=== PATIENT | female | born 1985 | race Caucasian/White ===

== ENCOUNTER 2018-10-11 20:01 | Inpatient (IN) | payer OTHER ==
[~2018-10-11] VITALS: Ht 167.6 cm; Wt 86.1 kg
--- NOTE | ~2018-10-11 | HC ---
[facility] [place] [address] CONSULTATION Name: JANETH ARREAGA Room #: 453-P ADM IN M.R.#: [id number] Admission: 10/11/18 Attend Phys: Stuart Betts MD Discharge: Date of : 87 Report #: [id number] THIS REPORT FOR: //name// CC: Ruben Rangel DO STUART Betts DATE OF SERVICE: 10/12/2018 She is a patient of Dr. Stuart Betts. She is also patient of Dr. Otis Rangel. CHIEF COMPLAINT: This is a very pleasant 33-year-old white female whom I am asked to evaluate for possible etiologies of upper abdominal pain that radiates around into her back associated with nausea and profuse vomiting of several days' duration. The patient had 2 previous episodes of similar type pain within the last month and she has also noted darkening of her urine, but no lightning of the stools. She does take protein powder supplements and other supplements that are probably not FDA approved. She does not know the names of these supplements. PAST MEDICAL HISTORY: Significant for irritable bowel syndrome. PAST SURGICAL HISTORY: None. ALLERGIES: No known drug allergies. MEDICATIONS: At the present time include only ibuprofen and the supplements as mentioned above that remain unnamed. SOCIAL HISTORY: She does not smoke cigarettes. She does not drink alcohol. She does smoke marijuana about 1 joint per day. FAMILY HISTORY: Significant for cholecystectomy in her mother. There is no history of colon polyps, colon cancer, Crohn's disease or ulcerative colitis in the family. REVIEW OF SYSTEMS: She denies any dysphagia, odynophagia, gastroesophageal reflux. She admits to hiatal hernia, but no peptic ulcer disease. Her weight has gone down intentionally by 50 pounds and she said she delivered her child 18 months ago. Her appetite has been decreased recently. She has had nausea and profuse vomiting over the last several days. She denies any hematemesis, hematochezia or melena. She does have the darkening of the urine. She has been constipated. She denies any light stools. She denies any jaundice, hepatitis or pancreatitis. She complains of pain across the upper abdomen radiating into her back that is burning in quality. [address] [address] CONSULTATION Name: JANETH ARREAGA Room #: 453-P [facility] IN M.R.#: [id number] Admission: 10/11/18 Attend Phys: Stuart Betts MD Discharge: Date of : 87 Report #: [id number] PHYSICAL EXAMINATION: GENERAL: Reveals a well-developed, well-nourished 33-year-old white female in no apparent distress at the time of my examination. She is awake, alert, oriented x 4 and cooperative and pleasant to converse with. HEENT: She appears normocephalic, atraumatic and anicteric. HEART: Rate and rhythm are regular with a normal S1 and S2. LUNGS: Clear bilaterally. ABDOMEN: Soft. Bowel sounds present in all 4 quadrants. There is no palpable organomegaly or mass. There is some mild tenderness throughout the entire abdomen, but no rebound or guarding. EXTREMITIES: Warm and dry. NEUROLOGIC: She appears grossly intact without lateralizing signs Symptoms are suggestive of gallbladder disease, although clinically she does not have a Tyson sign. She does have gallstones and she does have stones in the cystic duct, but not in the common bile duct. She has darkening of the urine. She has an elevated bilirubin of over 3 and elevated liver enzymes. AST was 683, it is down to 309 today. ALT was 1279, down to 892 today. Alkaline phosphatase was 238, down to 209. Total bilirubin was 3.5, down to 1.4 today. She had an ultrasound done that did not show any ductal dilatation, but MRCP that was done today to look for possible choledocholithiasis with a more sensitive test revealed the common bile duct to be dilated to 1 cm in this 33-year-old female. I also thought that I saw a filling defect in the distal common bile duct on one shot, but I am unsure of this finding. The MRCP was interpreted as being without choledocholithiasis. It should also be noted the patient gave to a son approximately 18 months ago and she has been having intermittent abdominal and back pain since that time. IMPRESSION: 1. As mentioned possible gallbladder disease. 2. History of irritable bowel syndrome. 3. Nausea and vomiting with dark-colored urine. 4. Constipation. RECOMMENDATIONS: To proceed with surgical consultation that has been obtained by Dr. Otis Rangel. Plans are for him to take the patient to the Operating Room for cholecystectomy later today and he will do an intraoperative cholangiogram, which will settle the issue of the common bile duct finding. At this point, I have no further plans. However, the fact that the patient did have some burning epigastric pain and has been taking some ibuprofen, she might benefit from proton pump inhibitors and even a possible EGD. [facility] [address] [place] [address] CONSULTATION Name: JANETH ARREAGA Room #: 453-P ADM IN M.R.#: [id number] Admission: 10/11/18 Attend Phys: Stuart Betts MD Discharge: Date of : 87 Report #: [id number] Thank you very much once again for allowing me to participate in her care. <ELECTRONICALLY SIGNED> By: Aleah Alvarez DO 10/12/18 [id number] Aleah Alvarez DO /nt
--- NOTE | ~2018-10-11 | PATH ---
[facility] [address] [place] [address] PATHOLOGY RPT PROCEDURE Name: LOUISE HUDDLESTON Room #: 453-P DIS IN M.R.#: [id number] Admission: 10/11/18 Date of : 87 Discharge: 10/13/18 Report #: [id number] Path Case #: [id number] [facility] Accession Number: [id number] . 01 Material submitted: . GALLBLADDER . 01 Clinical history: . Symptomatically cholecystitis . 02 Diagnosis: Gallbladder, cholecystectomy: - Moderate acute and chronic cholecystitis. - Cholelithiasis. - Incidental reactive lymph node. (IUV:pit 10/17/2018) QTP/10/17/2018 . 02 Electronically signed: . Erica Novak MD, Pathologist NPI- [id number] . 01 Gross description: . The specimen is received in formalin, labeled "Louise Huddleston gallbladder". The received is a previously opened gallbladder measuring 7.9 x 2.8 x 2.0 cm in greatest dimensions displaying bile-stained serosal surfaces. Further opening of the gallbladder reveals a velvety, bile-stained mucosa with a gallbladder wall thickness of 0.1 cm. Calculi are present displaying a bright yellow and nodular appearance, and no masses or lesions are noted grossly. Towards the cystic neck, there is a possible lymph nodes present measuring 0.6 cm in maximum dimensions. General Maintenance Technician sections, to include the proximal margin, are submitted in cassette A1. (CAA; 10/14/2018) QAC/QAC . 02 Pathologist provided ICD-10: K80.12 . 02 CPT . 322903 Specimen Comment: A courtesy copy of this report has been sent to Specimen Comment: [phone], . Specimen Comment: Report sent to / DR EMERY Performed at: [facility], [place], [place] [id number] [place] [address] PATHOLOGY RPT PROCEDURE Name: HUDDLESTONLOUISE MEDINA Room #: 453-P DIS IN M.R.#: [id number] Admission: 10/11/18 Date of : 87 Discharge: 10/13/18 Report #: [id number] Path Case #: [id number] MD Claudy Gastelum MD Phone: [phone] Performed at: [address] [id number] MD Erica Novak MD Phone: [phone]
[2018-10-11 20:13] VITALS: BP 133/113
[2018-10-11] MEDS ORDERED: IBUPROFEN 200200 M1 PO (20:18)
[2018-10-11 20:30] LABS: URINE BILIRUBIN 1+ (Negative); URINE BLOOD NEGATIVE (Negative); URINE CLARITY CLEAR; URINE COLOR YELLOW; URINE GLUCOSE-RANDOM* NEGATIVE (Negative); URINE KETONES NEGATIVE (Negative); URINE NITRITE-REFLEX NEGATIVE (Negative); URINE PROTEIN (DIPSTICK) NEGATIVE (Negative); URINE SPECIFIC GRAVITY <= 1.005 (1.005-1.035)
[2018-10-11 20:33] LABS: ABSOLUTE NEUTROPHILS 4.4 thou/uL (1.4-8.2); BASOPHILS 0.7 % (0.0-2.0); EOSINOPHILS 1.2 % (0.0-3.0); HEMATOCRIT 42.3 % (37.0-47.0); HEMOGLOBIN 14.7 gm/dL (12.0-15.0); LYMPHOCYTES 30.3 % (24.0-44.0); MCH 29.6 pg (26.0-34.0); MCHC 34.8 g/dL (28.0-37.0); MONOCYTES 8.1 % (1.0-8.0); PLATELET COUNT 241 thou/uL (150-400); POLYS 59.7 % (36.0-66.0); RBC 4.97 mil/uL (4.20-5.00); RDW 12.5 % (10.5-14.5); WBC 7.4 thou/uL (4.0-11.0)
[2018-10-11 20:36] LABS: ICTOTEST (BILI CONFIRMATORY) Positive (Negative); URINE LEUKOCYTES-REFLEX TRACE (Negative)
[2018-10-11 20:41] LABS: CALCIUM 9.3 mg/dL (8.5-10.1); CREATININE 0.9 mg/dL (0.6-1.0); POTASSIUM 3.6 mmol/L (3.5-5.1)
[2018-10-11 20:52] LABS: ALBUMIN 3.9 g/dL (3.4-5.0); TOTAL BILIRUBIN 3.5 mg/dL (<0.1-1.0); TOTAL PROTEIN 7.2 g/dL (6.4-8.2)
[2018-10-11 23:48] VITALS: BP 114/65
[2018-10-11 23:57] VITALS: BP 110/54
[2018-10-12] VITALS (7 sets, daily range): BP systolic 105–139; BP diastolic 61–94
[2018-10-12] MEDS ORDERED: UNICOMPLEX M TA1 TA1 PO (00:50)
[2018-10-12 08:36] LABS: HEMATOCRIT 38.8 % (37.0-47.0); HEMOGLOBIN 13.2 gm/dL (12.0-15.0); MCH 29.2 pg (26.0-34.0); MCHC 34.1 g/dL (28.0-37.0); MCV 85.8 fL (80.0-100.0); RBC 4.52 mil/uL (4.20-5.00); RDW 13.1 % (10.5-14.5); WBC 5.7 thou/uL (4.0-11.0)
[2018-10-12 08:48] LABS: ALBUMIN 3.2 g/dL (3.4-5.0); CALCIUM 8.4 mg/dL (8.5-10.1); CREATININE 0.8 mg/dL (0.6-1.0); POTASSIUM 4.1 mmol/L (3.5-5.1); TOTAL BILIRUBIN 1.4 mg/dL (<0.1-1.0); TOTAL PROTEIN 5.8 g/dL (6.4-8.2)
[2018-10-13 00:08] VITALS: BP 138/81
[2018-10-13 03:47] LABS: HEMATOCRIT 41.5 % (37.0-47.0); HEMOGLOBIN 13.9 gm/dL (12.0-15.0); MCHC 33.4 g/dL (28.0-37.0); MCV 86.6 fL (80.0-100.0); RBC 4.8 mil/uL (4.20-5.00); RDW 12.7 % (10.5-14.5); WBC 10.6 thou/uL (4.0-11.0)
[2018-10-13 04:00] VITALS: BP 147/91
[2018-10-13 04:03] LABS: ALBUMIN 3.4 g/dL (3.4-5.0); CALCIUM 8.6 mg/dL (8.5-10.1); CREATININE 0.8 mg/dL (0.6-1.0); POTASSIUM 4.2 mmol/L (3.5-5.1); TOTAL BILIRUBIN 0.8 mg/dL (<0.1-1.0); TOTAL PROTEIN 6.5 g/dL (6.4-8.2)
[2018-10-13 07:36] VITALS: BP 123/73
[2018-10-13] MEDS ORDERED: ONDANSETRON HCL4 M2 PO (09:46)
[2018-10-13] MEDS ORDERED: NORCO 5-325 TA1 EACH PO (09:46)
[2018-10-13] MEDS ORDERED: FLEXERIL PO (15:18)
[2018-10-13 15:45] VITALS: BP 123/73
[2018-10-13 16:33] VITALS: BP 123/73
== END 2018-10-13 17:39 | disposition home or self-care (01) | DRG 419 ==
LOC: ER 20:01 → 4W 23:29 → EROBS 23:29 → 4W 23:58
PROVIDERS: Family Medicine; Physician Assistant; Surgery
DX: K80.43 Calculus of bile duct with acute cholecystitis with obstruction (principal); R74.0 Nonspecific elevation of levels of transaminase and lactic acid dehydrogenase [LDH]; K59.00 Constipation, unspecified; F17.210 Nicotine dependence, cigarettes, uncomplicated; Z83.79 Family history of other diseases of the digestive system; Z79.899 Other long term (current) drug therapy; Z28.21 Immunization not carried out because of patient refusal
CPT/HCPCS: 10040; 50010; 50101; 50249; 50411; 50555; 50558; 50962; 51489; 51975; 52265; 53307; 53310; 54022; 54118; 55245; 55317; 56462; 56525; 56526; 62110; 62900; 70005